=== PATIENT | male | born 1960 | race Caucasian/White ===

== ENCOUNTER 2020-10-05 22:08 | Observation (INO) ==
[2020-10-05] MEDS ORDERED: SODIUM CHLORIDE 0.9% 1,000 ML IV STA (22:51)
[2020-10-05] MEDS ORDERED: ONDANSETRON 4 MG/2 ML VIAL IV STA (22:51)
[2020-10-05 22:58] LABS: Basophils # 0.1 10*3/uL (0.0-0.2); Basophils % 0.7 % (0.0-0.8); Eosinophils # 0.1 10*3/uL (0.0-0.87); Eosinophils % 0.5 % (0.00-10.9); Hematocrit 50.2 VOL% (42.0-52.0); Hemoglobin 17.9 GM/DL (14.0-18.0); Immature Granulocytes % 1.6 %; Immature Granulocytes Absolute 0.21 #; Mean Corpuscular HGB Conc 35.7 GM/DL (32-36); Mean Corpuscular Volume 93.1 FL (87-102); Mean Platelet Volume 9.7 FL (9.6-12.0); Monocytes % 10.4 % (1.7-12.7); Neutrophils % 70.8 % (38.7-73.9); Platelet Count 282 T/CUMM (130-400); Red Blood Count 5.39 MC/CUMM (3.8-5.5); White Blood Count 12.8 T/CUMM (4-12)
[2020-10-05 23:12] LABS: Bilirubin,Total 0.8 MG/DL (0.2-1.0); Calcium 9.3 MG/DL (8.5-10.1); Potassium 3.3 MMOL/L (3.5-5.1); Total Protein 8.8 G/DL (6.4-8.3)
[2020-10-05] MEDS ORDERED: POTASSIUM CHLORIDE 20 MEQ/15 ML UDCUP PO ONE (23:37)
[2020-10-06] MEDS ORDERED: ONDANSETRON 4 MG/2 ML VIAL IV ONE (00:09)
[2020-10-06] MEDS ORDERED: PROMETHAZINE 25 MG/1 ML VIAL IM PRN (00:43)
[2020-10-06] MEDS ORDERED: GLUCAGON 1 MG VIAL IM PRN (00:43)
[2020-10-06] MEDS ORDERED: ACETAMINOPHEN 325 MG TABLET PO PRN (00:43)
[2020-10-06] MEDS ORDERED: DEXTROSE 50% 25 GM/50 ML VIAL IV PRN (00:43)
[2020-10-06] MEDS ORDERED: POTASSIUM CHLORIDE RIDER 10 MEQ in PREMIX 1 EACH IV PRN (01:14)
[2020-10-06] MEDS ORDERED: MAGNESIUM SULF RIDER 2 GM in PREMIX 1 EACH IV PRN (01:14)
[2020-10-06] MEDS ORDERED: MAGNESIUM SULF RIDER 4 GM in PREMIX 1 EACH IV PRN (01:14)
[2020-10-06 02:55] LABS: Basophils % 0.1 % (0.0-0.8); Eosinophils # 0.1 10*3/uL (0.0-0.87); Eosinophils % 0.8 % (0.00-10.9); Hematocrit 50.1 VOL% (42.0-52.0); Hemoglobin 18.1 GM/DL (14.0-18.0); Immature Granulocytes % 1.4 %; Immature Granulocytes Absolute 0.15 #; Lymphocytes # 1.3 10*3/uL (1.4-4.0); Lymphocytes % 11.3 % (21.2-54.2); Mean Corpuscular HGB Conc 36.1 GM/DL (32-36); Mean Corpuscular Volume 93.8 FL (87-102); Mean Platelet Volume 9.6 FL (9.6-12.0); Monocytes % 9.3 % (1.7-12.7); Neutrophils % 77.1 % (38.7-73.9); Platelet Count 215 T/CUMM (130-400); Red Blood Count 5.34 MC/CUMM (3.8-5.5); White Blood Count 11.1 T/CUMM (4-12)
[2020-10-06 02:58] LABS: Total Cells Counted 0
[2020-10-06] MEDS: SODIUM CHLORIDE 0.9% 1,000 ML IV SCH ×3 (03:00→18:21)
[2020-10-06 03:27] LABS: Calcium 8.5 MG/DL (8.5-10.1); Osmolality,Calculated 288.7 MOS/KG (273-304); Potassium 3.6 MMOL/L (3.5-5.1)
[2020-10-06 04:57] LABS: Band Neutrophils 8 % (0-10); Eosinophils 1 % (0-10); Hypochromasia Slight; Lymphocytes 17 % (20-55); Microcytosis Slight; Platelet Estimate Normal; Segmented Neutrophils 63 % (50-85); Total Cells Counted 100
[2020-10-06] MEDS ORDERED: VANCOMYCIN 50 MG/ML 60 ML/BOTTLE PO SCH (06:00)
[2020-10-06 08:24] LABS: Bacteria,Urine Occasional /HPF (Few); Bilirubin,Urine Negative (Negative); Blood, Urine Negative (Negative); Glucose,Urine (UA) Negative (Negative); Granular Casts,Urine 7 /LPF (0-1); Hyaline Casts,Urine 225 /LPF (0-3); Ketones,Urine 5 mg/dL (Negative); Mucus,Urine Moderate /LPF (Occasional); Nitrite,Urine Negative (Negative); Protein,Urine 30 MG/DL; RBC,Urine 2 /HPF (0-4); Squamous Epithelial Cell,Urine Occasional /HPF (0-10); Urine Appearance CLOUDY (Clear); Urine Color Amber (Yellow); Urine Specific Gravity 1.026 (1.001-1.035); Urine Urobilinogen < 2.0 EU/DL (0.2-1.0); WBC,Urine 4 /HPF (0-6)
[2020-10-06] MEDS: VANCOMYCIN 50 MG/ML 60 ML/BOTTLE PO SCH ×4 (10:13→23:31)
[2020-10-06] MEDS: ONDANSETRON 4 MG/2 ML VIAL IV PRN (13:12)
[2020-10-06] MEDS: TIMOLOL 0.5% OPH SOLN 5 ML BOTTLE BOTH EYES SCH ×2 (15:17→20:34)
[2020-10-06] MEDS: IPRATROPIUM 0.03% NASAL SPRAY 30 ML BOTTLE BOTH NARES SCH ×2 (15:17→20:34)
[2020-10-06] MEDS: BRINZOLAMIDE BRIMONIDINE RIGHT EYE SCH ×2 (16:11→20:30)
[2020-10-06] MEDS: CYCLOBENZAPRINE 10 MG TABLET PO SCH ×2 (16:11→20:33)
[2020-10-06] MEDS: TAMSULOSIN 0.4 MG CAPSULE PO SCH (16:42)
[2020-10-06] MEDS: DILTIAZEM CD 120 MG CAPSULE PO SCH (16:42)
[2020-10-06] MEDS ORDERED: PILOCARPINE HCL 2% BOTH EYES SCH (18:00)
[2020-10-06] MEDS: prednisoLONE ACETATE 1% OPH SUSP 5 ML BOTTLE BOTH EYES SCH (20:34)
[2020-10-06] MEDS ORDERED: traZODone 50 MG TABLET PO SCH (21:00)
[2020-10-06] MEDS ORDERED: SIMVASTATIN 10 MG TABLET PO SCH (21:00)
[2020-10-06] MEDS ORDERED: BIMATOPROST 0.01% OPH SOLN 2.5 ML BOTTLE BOTH EYES SCH (21:00)
[2020-10-07] MEDS: SODIUM CHLORIDE 0.9% 1,000 ML IV SCH ×2 (02:00→09:08)
[2020-10-07] MEDS: VANCOMYCIN 50 MG/ML 60 ML/BOTTLE PO SCH ×2 (05:00→12:06)
[2020-10-07 06:34] LABS: Basophils % 0.2 % (0.0-0.8); Eosinophils # 0.3 10*3/uL (0.0-0.87); Eosinophils % 2.9 % (0.00-10.9); Hematocrit 38.4 VOL% (42.0-52.0); Immature Granulocytes % 1.3 %; Immature Granulocytes Absolute 0.13 #; Lymphocytes # 2.5 10*3/uL (1.4-4.0); Lymphocytes % 24.2 % (21.2-54.2); Mean Corpuscular HGB Conc 35.4 GM/DL (32-36); Mean Corpuscular Volume 94.6 FL (87-102); Mean Platelet Volume 11.1 FL (9.6-12.0); Monocytes % 13.4 % (1.7-12.7); Red Cell Distribution Width 13.2 % (9.3-17.3); White Blood Count 10.3 T/CUMM (4-12)
[2020-10-07 06:41] LABS: Platelet Count 139 T/CUMM (130-400); Red Blood Count 4.06 MC/CUMM (3.8-5.5)
[2020-10-07 06:42] LABS: Hemoglobin 13.6 GM/DL (14.0-18.0)
[2020-10-07 07:11] LABS: Calcium 7.8 MG/DL (8.5-10.1); Osmolality,Calculated 292.7 MOS/KG (273-304); Potassium 3.3 MMOL/L (3.5-5.1)
[2020-10-07 08:21] VITALS: BP 134/67
[2020-10-07 08:21] LABS: Anisocytosis 1+; Band Neutrophils 40 % (0-10); Burr Cells Few; Eosinophils 2 % (0-10); Lymphocytes 22 % (20-55); Platelet Estimate Adequate; Segmented Neutrophils 23 % (50-85); Total Cells Counted 100
[2020-10-07 08:22] LABS: Macrocytosis 1+
[2020-10-07] MEDS ORDERED: POTASSIUM CHLORIDE 20 MEQ TABLET PO ONE (08:37)
[2020-10-07] MEDS: DILTIAZEM CD 120 MG CAPSULE PO SCH (09:06)
[2020-10-07] MEDS: TAMSULOSIN 0.4 MG CAPSULE PO SCH (09:06)
[2020-10-07] MEDS: CYCLOBENZAPRINE 10 MG TABLET PO SCH (09:07)
[2020-10-07] MEDS: ONDANSETRON 4 MG/2 ML VIAL IV PRN (09:07)
[2020-10-07] MEDS: TIMOLOL 0.5% OPH SOLN 5 ML BOTTLE BOTH EYES SCH (09:10)
[2020-10-07] MEDS: prednisoLONE ACETATE 1% OPH SUSP 5 ML BOTTLE BOTH EYES SCH (09:10)
[2020-10-07] MEDS: IPRATROPIUM 0.03% NASAL SPRAY 30 ML BOTTLE BOTH NARES SCH (09:11)
[2020-10-07] MEDS: BRINZOLAMIDE BRIMONIDINE RIGHT EYE SCH (10:06)
== END 2020-10-07 12:09 | disposition home or self-care (01) ==
LOC: N.EDINP 22:08 → N.ED 22:08 → N.3E 10-06 01:13
PROVIDERS: ADMIT Internal Medicine; ATTEND Internal Medicine